=== PATIENT | female | born 1990 ===

== ENCOUNTER 2020-10-08 11:00 | Emergency (ER) | payer SELFPAY | END 2020-10-08 11:30 | disposition left against medical advice (07) | LOC: ED 11:00 | DX: M79.89 Other specified soft tissue disorders (principal); Z53.21 Procedure and treatment not carried out due to patient leaving prior to being seen by health care provider ==

== ENCOUNTER 2020-10-24 11:22 | Emergency (ER) | payer SELFPAY | END 2020-10-24 11:56 | disposition left against medical advice (07) | LOC: ED 11:22 | DX: R10.9 Unspecified abdominal pain (principal); Z53.21 Procedure and treatment not carried out due to patient leaving prior to being seen by health care provider ==